=== PATIENT | male | born 1935 | race Caucasian/White ===

== ENCOUNTER 2018-06-12 10:46 | Emergency (ER) | payer MEDICARE ==
[2018-06-12 10:52] VITALS: RESP 18; TEMP 98.4
--- NOTE | 2018-06-12 11:01 | ED ---
General Adult HPI - General Chief complaint: Extremity Injury, Lower Stated complaint: Lt foot injury Time Seen by Provider: 06/12/18 10:56 Source: patient, RN notes reviewed Mode of arrival: wheelchair Limitations: no limitations - History of Present Illness Initial comments: Patient 82-year-old male presents to the emergency room today with a chief complaint of an injury to the left ankle that occurred 2 days ago. Patient does admit that he slipped on the ice twisting his left ankle. He does admit that he still had some swelling in this area. States it is tender when he tries to ambulate. Patient denies any head injury or loss conscious. He denies any other complaints or symptoms. Patient denies any recent fever, chills , shortness of breath, chest pain, back pain, abdominal pain, nausea or vomiting , headaches or visual changes, or any other complaints. - Related Data Home Medications Medication Instructions Recorded Confirmed Acetaminophen [Tylenol] 1,000 mg PO BID 05/12/14 06/03/14 Aspirin 325 mg PO DAILY 05/12/14 06/03/14 Calcitriol 0.5 mcg PO MOWEFR 05/12/14 06/03/14 Cholecalciferol [Vitamin D3] 2,000 unit PO DAILY 05/12/14 06/03/14 Ezetimibe/Simvastatin [Vytorin 1 each PO HS 05/12/14 06/03/14 10-40 mg Tablet] Ferrous Sulfate [Feosol] 325 mg PO DAILY 05/12/14 06/03/14 Furosemide [Lasix] 20 mg PO AC-SUPPER 05/12/14 06/03/14 Furosemide [Lasix] 20 mg PO QAM 05/12/14 06/03/14 Insuln Asp Prt/Insulin Aspart 25 unit SQ AC-BID 05/12/14 06/03/14 [NovoLOG MIX 70-30 VIAL] Metoprolol Tartrate [Lopressor] 50 mg PO BID 05/12/14 06/03/14 Multivitamins, Thera [Multivitamin 1 each PO HS 05/12/14 06/03/14 (formulary)] glipiZIDE [Glucotrol] 10 mg PO AC-BID 05/12/14 06/03/14 Allergies Allergy/AdvReac Type Severity Reaction Status Date / Time clear adhesive tape Allergy blisters Uncoded 06/12/18 10:52 Review of Systems ROS Statement: Those systems with pertinent positive or pertinent negative responses have been documented in the HPI. ROS Other: All systems not noted in ROS Statement are negative. 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, decreased kidney funtion History of Any Multi-Drug Resistant Organisms: None Reported Past Surgical History: Coronary Bypass/CABG, Pacemaker, Tonsillectomy Additional Past Surgical History / Comment(s): cataracts Past Anesthesia/Blood Transfusion Reactions: No Reported Reaction Type of Cardiac Device: Permanent Pacemaker Device Placement Date:: 05/19/2007 Past Psychological History: No Psychological Hx Reported Smoking Status: Former smoker Past Alcohol Use History: None Reported Past Drug Use History: None Reported - Past Family History Mother Family Medical History: Cancer Brother(s) Family Medical History: Cancer Sister(s) Family Medical History: Cancer General Exam - General Exam Comments Initial Comments: General: The patient is awake and alert, in no distress, and does not appear acutely ill. Eye: extra-ocular movements are intact. No nystagmus. There is normal conjunctiva bilaterally. No signs of icterus. Ears, nose, mouth and throat: There are moist mucous membranes and no oral lesions. Neck: The neck is supple, there is no tenderness or JVD. Musculoskeletal: Patient does have mild swelling to the lateral aspect of the left ankle. Patient shows good range of motion. Pedal pulses 2+. No bony tenderness to the knee. Mildly tender over the proximal tibia. Patient does have tenderness over the lateral malleolus with minimal tenderness to the medial. Sensations intact. Neurological: A&O x 3. CN II-XII intact, There are no obvious motor or sensory deficits. Coordination appears grossly intact. Speech is normal. Skin: Skin is warm and dry and no rashes or lesions are noted. Psychiatric: Cooperative, appropriate mood & affect, normal judgment. Limitations: no limitations Course Vital Signs 06/12/18 10:50 Temperature 98.4 F Pulse Rate 66 Respiratory 18 Rate Blood Pressure 100/54 O2 Sat by Pulse 98 Oximetry Medical Decision Making - Medical Decision Making Patient's x-ray reviewed and does show a fracture of the distal fibula nondisplaced. Results were discussed with patient. Patient placed in a short leg posterior OCL splint here in the ER. Neurovascular rechecked and intact. Advised following up with orthopedics over the next 2 days. Disposition Clinical Impression: Ankle fracture, left Disposition: HOME SELF-CARE Condition: Good Instructions (If sedation given, give patient instructions): Ankle Fracture (ED ) Additional Instructions: Please follow-up orthopedics over the next 2 days as discussed. Please stay nonweightbearing until follow-up appointment was splinted in place. Please return to emergency room symptoms increase or worsen or for any other concerns. Is patient prescribed a controlled substance at d/c from ED?: No Referrals: Rakan Rios DO [Primary Care Provider] - 1-2 days Christian Messina MD [STAFF PHYSICIAN] - 1-2 days Time of Disposition: 11:59
--- NOTE | 2018-06-12 11:53 | XR ---
EXAMINATION TYPE: XR tibia fibula 2 views LT, XR ankle complete 3 views LT DATE OF EXAM: 06/12/2018 COMPARISON: NONE HISTORY: 82-year-old male pain after slip and fall on ice FINDINGS: Tibia/fibula: Surgical clips medially from prior saphenous vein graft harvesting. No acute fracture of the more pro ximal to mid tibia or fibula. Ankle: There is an oblique, mildly displaced fracture of the distal fibula with overlying soft tissue swelli ng. Underlying tibiotalar joint effusion. No medial clear space widening. No additional acute fractur e seen. Small plantar calcaneal spur. Vascular calcifications. COMBINED IMPRESSION: 1. Mildly displaced oblique fracture distal fibula with associated soft tissue swelling. 2. No additional acute osseous abnormality seen.
[2018-06-12 12:17] VITALS: BP 117/89; PULSE 72
== END 2018-06-12 12:16 | disposition home or self-care (01) ==
LOC: EC 10:46
DX: S82.832A Other fracture of upper and lower end of left fibula, initial encounter for closed fracture (principal); E11.9 Type 2 diabetes mellitus without complications; E78.5 Hyperlipidemia, unspecified; M19.90 Unspecified osteoarthritis, unspecified site; Z87.891 Personal history of nicotine dependence; Z79.4 Long term (current) use of insulin; Z79.82 Long term (current) use of aspirin; Z79.899 Other long term (current) drug therapy; Z91.048 Other nonmedicinal substance allergy status; Z95.1 Presence of aortocoronary bypass graft; Z95.0 Presence of cardiac pacemaker; W00.0XXA Fall on same level due to ice and snow, initial encounter; Y92.009 Unspecified place in unspecified non-institutional (private) residence as the place of occurrence of the external cause
CPT/HCPCS: 29515; 99283

== ENCOUNTER 2020-01-11 09:49 | Emergency (ER) | payer MEDICARE ==
[2020-01-11 09:55] VITALS: TEMP 97
--- NOTE | 2020-01-11 10:24 | ED ---
Recheck HPI - General Chief Complaint: Recheck/Abnormal Lab/Rx Stated Complaint: lab re-draw Time Seen by Provider: 01/11/20 10:03 Source: patient, RN notes reviewed, old records reviewed Mode of arrival: ambulatory Limitations: no limitations - History of Present Illness Initial Comments: Patient is a pleasant 84-year-old male who presents to the ER today for abnormal lab levels. Patient reportedly had an elevated potassium from blood draws performed yesterday. He reports that he has biannual blood work and had 10 yesterday at his PCPs office. His potassium was reportedly 5.6. He states that he has no complaints of any pain palpitations or chest pain. He states when he returned home from his doctor's is a hematoma ballon. They called him today with the abnormal lab result and sent him to the ER for reevaluation. - Related Data Home Medications Medication Instructions Recorded Confirmed Acetaminophen [Tylenol] 1,000 mg PO BID 05/12/14 06/03/14 Aspirin 325 mg PO DAILY 05/12/14 06/03/14 Cholecalciferol [Vitamin D3 (25 2,000 unit PO DAILY 05/12/14 06/03/14 Mcg = 1000 Iu)] Ezetimibe/Simvastatin [Vytorin 1 each PO HS 05/12/14 06/03/14 10-40 mg Tablet] Ferrous Sulfate [Feosol] 325 mg PO DAILY 05/12/14 06/03/14 Furosemide [Lasix] 20 mg PO AC-SUPPER 05/12/14 06/03/14 Furosemide [Lasix] 20 mg PO QAM 05/12/14 06/03/14 Insuln Asp Prt/Insulin Aspart 25 unit SQ AC-BID 05/12/14 06/03/14 [NovoLOG MIX 70-30 VIAL] Metoprolol Tartrate [Lopressor] 50 mg PO BID 05/12/14 06/03/14 Multivitamins, Thera [Multivitamin 1 each PO HS 05/12/14 06/03/14 (formulary)] calcitrioL [Calcitriol] 0.5 mcg PO MOWEFR 05/12/14 06/03/14 glipiZIDE [Glucotrol] 10 mg PO AC-BID 05/12/14 06/03/14 Allergies Allergy/AdvReac Type Severity Reaction Status Date / Time clear adhesive tape Allergy blisters Uncoded 01/11/20 09:54 Review of Systems ROS Statement: Those systems with pertinent positive or pertinent negative responses have been documented in the HPI. ROS Other: All systems not noted in ROS Statement are negative. 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, decreased kidney funtion History of Any Multi-Drug Resistant Organisms: None Reported Past Surgical History: Coronary Bypass/CABG, Pacemaker, Tonsillectomy Additional Past Surgical History / Comment(s): cataracts Past Anesthesia/Blood Transfusion Reactions: No Reported Reaction Type of Cardiac Device: Permanent Pacemaker Device Placement Date:: 05/19/2007 Past Psychological History: No Psychological Hx Reported Smoking Status: Former smoker Past Alcohol Use History: None Reported Past Drug Use History: None Reported - Past Family History Mother Family Medical History: Cancer Brother(s) Family Medical History: Cancer Sister(s) Family Medical History: Cancer General Exam - General Exam Comments Initial Comments: Pleasant 84-year-old male. No significant distress. Limitations: no limitations General appearance: alert, in no apparent distress Head exam: Present: atraumatic, normocephalic, normal inspection Eye exam: Present: normal appearance ENT exam: Present: normal exam, mucous membranes moist Neck exam: Present: normal inspection. Absent: tenderness, meningismus, lymphadenopathy Respiratory exam: Present: normal lung sounds bilaterally. Absent: respiratory distress, wheezes, rales, rhonchi, stridor Cardiovascular Exam: Present: regular rate, normal rhythm, normal heart sounds. Absent: systolic murmur, diastolic murmur, rubs, gallop, clicks GI/Abdominal exam: Present: soft, normal bowel sounds. Absent: distended, tenderness, guarding, rebound, rigid Back exam: Present: normal inspection Neurological exam: Present: alert, oriented X3, CN II-XII intact Psychiatric exam: Present: normal affect, normal mood Skin exam: Present: warm, dry, intact, normal color. Absent: rash Course Vital Signs 01/11/20 09:52 Temperature 97.0 F L Pulse Rate 81 Respiratory 18 Rate Blood Pressure 158/95 O2 Sat by Pulse 96 Oximetry Medical Decision Making - Medical Decision Making Patient's in the 4-year-old male presents for abnormal lab value yesterday of 5.6 potassium level. Patient states he is otherwise feeling well has no complaints of any pain or symptoms. At this time patient's potassium is 5.1 and normal. Patient is relieved. I discussed no symptoms or other reason for workup and will be discharged at this time with PCP follow-up. - Lab Data Result diagrams: 01/11/20 10:09 Lab Results 01/11/20 Range/Units 10:09 Potassium 5.1 (3.5-5.1) mmol/L Disposition Clinical Impression: Suspected condition not found Disposition: HOME SELF-CARE Condition: Good Instructions (If sedation given, give patient instructions): Potassium Content of Foods List (ED) Additional Instructions: Potassium is normal today of 5.1. Follow-up with PCP. Return to the ED if any alarming signs or symptoms occur. Is patient prescribed a controlled substance at d/c from ED?: No Referrals: Rakan Rios DO [Primary Care Provider] - 1-2 days Time of Disposition: 10:30
[2020-01-11 10:35] VITALS: BP 132/86; PULSE 86; RESP 16
== END 2020-01-11 10:33 | disposition home or self-care (01) ==
LOC: EC 09:49
DX: E11.9 Type 2 diabetes mellitus without complications (principal); E78.5 Hyperlipidemia, unspecified; M19.90 Unspecified osteoarthritis, unspecified site; Z79.899 Other long term (current) drug therapy; Z79.4 Long term (current) use of insulin; Z79.84 Long term (current) use of oral hypoglycemic drugs; Z79.82 Long term (current) use of aspirin; Z91.048 Other nonmedicinal substance allergy status; Z87.891 Personal history of nicotine dependence
CPT/HCPCS: 36415; 84132; 99283